=== PATIENT | female | born 1955 | race African-American/Black ===

== ENCOUNTER 2016-11-26 16:37 | Emergency (ER) | payer OTHER, BC ==
[~2016-11-26] VITALS: Ht 162.6 cm; Wt 83.6 kg
[~2016-11-26 16:37] MED LIST: ASPIRIN EC325 MG PO; BENICAR HCT 201 EACH PO; BUSPAR7.5 MG PO; CALCIUM 600 +1 EAC4 PO; CHILD ASPIRIN81 M1 PO; DAILY VALUE1 EACH PO; ESCITALOPRAM OX20 MG PO; LEVO-T50 MCG PO; LEVOTHYROXINE50 MCG PO; LEXAPRO20 MG PO; PRAVASTATIN SOD20 MG PO; PREDNISONE5 M1 PO; PROAIR HFA8.5 GM IH
[2016-11-26 17:48] LABS: EOSINOPHIL (%) 2.3 % (0-5); EOSINOPHIL COUNT 0.1 K/uL (0-0.3); HEMATOCRIT 37.6 % (36.0-46.0); IMMATURE GRANULOCYTE (%) 0.2 % (0.0-0.7); INSTRUMENT ABS NEUTROPHIL CT 2.8 K/uL; LYMPHOCYTE COUNT 1.8 K/uL (1.0-2.8); MCH 28.2 PG (29.0-34.0); MCV 85.6 FL (83-99); MEAN PLAT.VOLUME 9.8 uM^3 (9.5-12.4); MONOCYTE (%) 9.6 % (3-12); MONOCYTE COUNT 0.5 K/uL (0-0.8); NEUTROPHIL (%) 52.9 % (45-76); NEUTROPHIL COUNT 2.8 K/uL (1.8-6.4); PLATELET COUNT 257 K/uL (156-360); RBC DIS.WIDTH-CV 13.3 % (11.8-14.6); RED BLOOD COUNT 4.39 M/uL (3.80-5.20); WHITE BLOOD COUNT 5.3 K/uL (4.1-10.2)
[2016-11-26 17:58] LABS: CHLORIDE 105 mEq/L (99-109); POTASSIUM 3.5 mEq/L (3.7-5.4); SODIUM 143 mEq/L (136-147)
[2016-11-26 18:01] LABS: GLUCOSE 92 mg/dL (70-99)
[2016-11-26 18:02] LABS: ANION GAP 9 MEQ/L (2-14)
[2016-11-26 18:03] LABS: TOTAL BILIRUBIN 0.4 mg/dL (0.0-1.0)
[2016-11-26 18:04] LABS: ALKALINE PHOSPHATASE 70 IU/L (3-129); GFR ESTIMATE (CALCULATED) > 59 mL/min/
[2016-11-26 18:05] LABS: UREA NITROGEN (BUN) 18 mg/dL (9-23)
[2016-11-26] MEDS ORDERED: ZOFRAN ODT8 MG PO (19:29)
[2016-11-26] MEDS ORDERED: TRAMADOL HCL50 MG PO (19:29)
[2016-11-26] MEDS ORDERED: TESSALON PERLE100 MG PO (19:29)
[2016-11-26 20:04] VITALS: BP 120/71
== END 2016-11-26 20:06 | disposition home or self-care (01) ==
LOC: RME 16:37 → EME 16:37 → RME 20:06
PROVIDERS: Physician Assistant
DX: J40 Bronchitis, not specified as acute or chronic (principal); R11.2 Nausea with vomiting, unspecified; R19.7 Diarrhea, unspecified; M25.512 Pain in left shoulder; M25.511 Pain in right shoulder; J45.909 Unspecified asthma, uncomplicated; I10 Essential (primary) hypertension; E78.5 Hyperlipidemia, unspecified; E03.9 Hypothyroidism, unspecified; Z85.3 Personal history of malignant neoplasm of breast; Z79.82 Long term (current) use of aspirin
CPT/HCPCS: 80053; 81003; 85025; 94640; 99281; 99284